=== PATIENT | male | born 1995 | race Caucasian/White ===

== ENCOUNTER 2021-03-27 13:32 | Emergency (ER) | payer BC, SELFPAY ==
[2021-03-27 14:00] VITALS: BP 138/91; PULSE 88; RESP 18; TEMP 36.8; O2SAT 98; BMI 31.7
[2021-03-27 14:23] VITALS: BP 138/91; PULSE 88; RESP 18; TEMP 36.8; O2SAT 98
--- NOTE | 2021-03-27 14:41 | HMH.EDUTC ---
[facility] [place] Disposition Clinical Impression: Exposure to COVID-19 virus Disposition: Home, Self-Care Condition on Discharge: Good Instructions: DI for COVID-19 (Suspected or Confirmed ), How to Care for Someone with COVID-19, Preventing the Spread of Coronavirus Discharge Instructions Additional Instructions: covid swab was sent to lab, call later today for results. self isolate until test results are known to be negative Referrals: Provider,Referral, [Primary Care Provider] - Time of Disposition: 14:43 Medical Decision Making - Jose E Inquiry Pt receiving controlled substance: No Vital Signs: 03/27/21 14:00 03/27/21 14:23 Temperature 98.3 F 98.3 F Temperature Source Oral Pulse Rate 88 Pulse Rate [Right Brachial] 88 Respiratory Rate 18 18 Blood Pressure 138/91 H Blood Pressure [Right Arm] 138/91 H Blood Pressure Mean [Right Arm] 106 Blood Pressure Source [Right Arm] Automatic Cuff Blood Pressure Position [Right Arm] Sitting 02 Sat by Pulse Oximetry 98 Oxygen Delivery Method Room Air Orders (Tests/Meds): ORDERS Category Date Time Status Covid-19 Nasal PCR ([facility]) Routine Lab 03/27/21 14:10 Received [facility] [place] HPI - General Chief complaint: Urgent Treatment Center Stated complaint: covid exposure Time Seen by Provider: 03/27/21 14:41 Mode of Arrival: Ambulatory Source of Information: Patient Limitations: No Limitations Description of Symptoms (Recalled from Triage Doc. by RN): COVID TEST D/T EXPOSURE. DENIES SYMPTOMS HEENT Symptoms (Recalled from RN notes): No Resp Symptoms (Recalled from RN notes): No Skin Symptoms (Recalled from RN notes): No MS Symptoms (Recalled from RN notes): No Functional Status (Recalled from RN notes): WNL - History of Present Illness Provider Complaint: 25 yr old male presents for covid test. no symptoms but exposer - Related Data Allergies Allergy/AdvReac Type Severity Reaction Status Date / Time No Known Allergies Allergy Verified 03/27/21 14:19 - Worker's Comp Is this a Worker's Comp case?: No [facility] History - Hepatitis A Screen Drug use history?: No High risk sexual behaviors?: No History of sexually transmitted infection?: No Currently employed?: No Childcare worker?: No Do you have indoor plumbing?: Yes Do you have electricity?: Yes Attestation statement:: This patient has been screened for Hepatitis A risk factors. I have reviewed the patient's past medical history: Yes ROS Obtained: Yes Systems reviewed as appropriate & no additional complaints - Constitutional Constitutional: Reports system reviewed and no additional complaints, except as docu, Denies fever(s) - Eyes Eyes: Reports system reviewed and no additional complaints, except as docu, Denies blurry vision - ENT Ears, Nose, Mouth, and Throat: Reports system reviewed and no additional complaints, except as docu, Denies sore throat - Cardiovascular Cardiovascular: Reports system reviewed and no additional complaints, except as docu, Denies chest pain - Respiratory Respiratory: Reports system reviewed and no additional complaints, except as docu, Denies chest congestion - Gastrointestinal Gastrointestingal: Reports: system reviewed and no additional complaints, except as docu. Denies: belching - Genitourinary Male Genitourinary: Reports system reviewed and no additional complaints, except as docu - Musculoskeletal Musculoskeletal: Reports system reviewed and no additional complaints, except as docu, Denies joint pain - Integumentary/Breasts Skin/Breast: Reports system reviewed and no additional complaints, except as docu, Denies rash - Neurologic Neurologic: Reports system reviewed and no additional complaints, except as docu, Denies burning sensations - Endocrine Endocrine: Reports system reviewed and no additional complaints, except as docu, Denies fatigue - Hematologic/Lymphatic Henatologic/Lymphatic: Reports system reviewed and no additional complaints, e
== END 2021-03-27 14:52 | disposition home or self-care (01) ==
PROVIDERS: Emergency Provider Nurse Practitioner Family
DX: Z20.822 Contact with and (suspected) exposure to COVID-19 (principal)
CPT/HCPCS: 99202; G0463; U0003

== ENCOUNTER → 2021-08-08 10:35 | Outpatient (CLI) | payer OTHER, SELFPAY | PROVIDERS: Visit Provider Nurse Practitioner | DX: U07.1 COVID-19 (principal) | CPT/HCPCS: C9803; U0003; U0005 ==

== ENCOUNTER 2021-10-25 10:45 | Emergency (ER) | payer OTHER, SELFPAY ==
[2021-10-25 11:41] VITALS: BP 126/78; PULSE 110; RESP 16; TEMP 37.1; O2SAT 99; BMI 30.8
--- NOTE | 2021-10-25 11:56 | HMH.EDUTC ---
[facility] [place] Clinical Impression: Gastroenteritis Disposition: Home, Self-Care Condition on Discharge: Good Instructions: Viral Gastroenteritis, DI for Viral Gastroenteritis -- Adult, Gastroenteritis Diet Additional Instructions: Drink plenty of fluids. Take tylenol or ibuprofen for pain or fever. Take the medications as directed. Follow up with your regular doctor. GO TO THE ER FOR ANY WORSENING SYMPTOMS If you continue to have diarrhea for the next 48 hours, please bring a stool sample back to the hospital Prescriptions: Ondansetron [Zofran 4mg ODT] 4 mg PO Q8HP PRN #20 tab PRN Reason: Nausea Transmission Status: [facility] Referrals: Leobardo River MD [Primary Care Provider] - Forms: Work/School Release Time of Disposition: 12:49 Medical Decision Making - Medical Records Medical records reviewed: No: I reviewed the patient's medical records. - Jose E Inquiry Pt receiving controlled substance: No Vital Signs: 10/25/21 11:41 10/25/21 13:09 Temperature 98.7 F 98.7 F Temperature Source Oral Pulse Rate 110 H Pulse Rate [Left] 110 H Respiratory Rate 16 16 Blood Pressure 126/78 Blood Pressure [Right Arm] 126/78 Blood Pressure Mean [Right Arm] 94 02 Sat by Pulse Oximetry 99 [facility] [place] HPI - General Stated complaint: abd pains, diarrhea, nausea Time Seen by Provider: 10/25/21 11:45 Mode of Arrival: Ambulatory Source of Information: Patient Limitations: No Limitations Description of Symptoms (Recalled from Triage Doc. by RN): pt believes he has food poisoning from eating bad food at work. . pt c/o abd cramping and n/v/d ongoing x2 days. HEENT Symptoms (Recalled from RN notes): No Resp Symptoms (Recalled from RN notes): No Skin Symptoms (Recalled from RN notes): No MS Symptoms (Recalled from RN notes): No Functional Status (Recalled from RN notes): wnl - History of Present Illness Provider Complaint: He has had n/v/d since last night. He thinks that he has food poisoning. He denies any abdominal pain. - Related Data Previous Rx's Medication Instructions Recorded Ondansetron [Zofran 4mg ODT] 4 mg PO Q8HP PRN #20 tab 10/25/21 Allergies Allergy/AdvReac Type Severity Reaction Status Date / Time No Known Allergies Allergy Verified 03/27/21 14:19 - Worker's Comp Is this a Worker's Comp case?: No H History - Hepatitis A Screen Drug use history?: No High risk sexual behaviors?: No History of sexually transmitted infection?: No Currently employed?: No Childcare worker?: No Do you have indoor plumbing?: Yes Do you have electricity?: Yes Attestation statement:: This patient has been screened for Hepatitis A risk factors. I have reviewed the patient's past medical history: Yes ROS Obtained: Yes All systems reviewed & no additional complaints - Constitutional Constitutional: Reports chills, Denies fever(s), Reports poor appetite, Reports malaise - Eyes Eyes: Denies eye discharge - ENT Ears, Nose, Mouth, and Throat: Denies dizziness, Denies otalgia, Denies sore throat - Cardiovascular Cardiovascular: Denies chest pain - Respiratory Respiratory: Denies chest congestion, Denies cough, Denies dyspnea, Denies stridor, Denies wheezing - Gastrointestinal Gastrointestingal: Reports: as per HPI Physical Exam - General General appearance: alert, in no apparent distress - Head Head exam: atraumatic, normocephalic, normal inspection - Eye Eye exam: Present: normal appearance, PERRL, EOMI - ENT ENT exam: Present: normal exam, normal oropharynx, mucous membranes moist, TM's normal bilaterally, normal external ear exam - Neck Neck exam: Present: normal inspection, full ROM, trachea midline. Absent: meningismus, lymphadenopathy - Chest Chest inspection: Present: normal inspection, symmetric chest wall rise. Absent: tenderness - Respiratory Respiratory exam: Present: normal lung sounds bilaterally. Abse
[2021-10-25 13:09] VITALS: BP 126/78; PULSE 110; RESP 16; TEMP 37.1
== END 2021-10-25 13:10 | disposition home or self-care (01) ==
PROVIDERS: Emergency Provider Nurse Practitioner Family; PCP Surgery
DX: K52.9 Noninfective gastroenteritis and colitis, unspecified (principal)
CPT/HCPCS: 99212; G0463

== ENCOUNTER 2021-10-27 10:57 | Emergency (ER) | payer OTHER, SELFPAY ==
[2021-10-27 10:58] VITALS: BP 145/95; PULSE 89; RESP 16; TEMP 37.1; O2SAT 98; BMI 30.8
--- NOTE | 2021-10-27 11:06 | CT_ITS ---
FINAL REPORT TECHNIQUE: After the administration of intravenous contrast, axial images were obtained through the abdomen and pelvis by computed tomography. This study was performed with technique to keep radiation doses as low as reasonably achievable, (ALARA). Individualized dose reduction techniques using automated exposure control or adjustment of the MA and/or KV according to the patient's size were employed. CLINICAL HISTORY: RLQ ABD PAIN FINDINGS: Abdomen: The lung bases are clear. The liver is normal in size and attenuation. The spleen is unremarkable. The adrenals are normal. The pancreas is unremarkable. The kidneys enhance appropriately. The aorta is normal in caliber. There is no free fluid or adenopathy. There are nonspecific fluid-filled bowel loops which could represent an enteritis. Pelvis: The appendix is normal. The urinary bladder is unremarkable. There is no free fluid or adenopathy. IMPRESSION: Nonspecific fluid-filled bowel loops which could represent enteritis. Reviewed, Interpreted and Dictated by Manny Anne III, MD Transcribed by Lynda Devi Authenticated by Manny Anne III, MD on 10/27/2021 12:15:13 PM [facility]
--- NOTE | 2021-10-27 11:08 | PC.NURSE ---
ED MD at
--- NOTE | 2021-10-27 11:14 | HMH.EDGENADL ---
ED Disposition Clinical Impression: Gastroenteritis Disposition: Home, Self-Care Condition on Discharge: Good Instructions: DI for Viral Gastroenteritis -- Adult Additional Instructions: Continue Zofran as needed for nausea and vomiting. Tylenol or ibuprofen as needed for pain. Collect a diarrhea sample using the provided supplies and return it along with the order form to ER registration at [facility] for testing. Obtain the results of this test from your primary care provider the next day. Additional instructions for VOMITING/DIARRHEA: See your physician as soon as possible for further evaluation. Drink plenty of fluids. Return immediately if severe abdominal pain, uncontrollable vomiting, shortness of breath, fever, bloody diarrhea, vomiting of blood or abdominal distention. Referrals: Leobardo River MD [Primary Care Provider] - Forms: Work/School Release - Critical Care Critical Care Time: No Attestation: On , the high probability of a clinically significant, sudden or life threatening deterioration of the following system(s) required my full and direct attention, intervention and personal management. The time I documented below is in addition to time spent performing reported procedures but includes the following listed in this critical care notation. Medical Decision Making - Medical Records Medical records reviewed: Yes: I reviewed the patient's medical records. MR Comment: Reviewed urgent treatment center note from 10/25/2021. - Jose E Inquiry Pt receiving controlled substance: No Vital Signs: 10/27/21 10:58 Temperature 98.7 F Temperature Source Oral Pulse Rate [Radial] 89 Respiratory Rate 16 Blood Pressure [Right Arm] 145/95 H Blood Pressure Mean [Right Arm] 111 Blood Pressure Position [Right Arm] Sitting 02 Sat by Pulse Oximetry 98 Oxygen Delivery Method Room Air - Lab Data Lab Results 10/27/21 11:17: WBC 7.3, RBC 5.33, Hgb 15.5, Hct 46.3, MCV 86.9, MCH 29.0, MCHC 33.4, RDW 12.8, Plt Count 382, MPV 6.9 L, Neut % (Auto) 59.0, Lymph % (Auto) 31.2, Kemper % (Auto) 6.7, Eos % (Auto) 2.4, Baso % (Auto) 0.7, Neut # (Auto) 4.3, Lymph # (Auto) 2.3, Kemper # (Auto) 0.5, Eos # (Auto) 0.2, Baso # (Auto) 0.1 10/27/21 11:17: Sodium 139, Potassium 3.6, Chloride 106, Carbon Dioxide 26, Anion Gap 10.6, BUN 13, Creatinine 0.80, Estimated Creat Clear 233, Estimated GFR 117, Est GFR ( Amer) 141, Glucose 95, Calcium 8.9, Total Bilirubin 0.3, AST 34, ALT 38, Alkaline Phosphatase 84, Total Protein 7.4, Albumin 4.5, Globulin 2.9, Albumin/Globulin Ratio 1.6 10/27/21 11:17: Lipase 131 Result diagrams: 10/27/21 11:17 10/27/21 11:17 Orders (Tests/Meds): ED MEDICATIONS Discontinued Medications Generic Name Dose Route Start Last Admin Trade Name Freq PRN Reason Stop Dose Admin Sodium Chloride 1,000 mls @ 999 mls/hr 10/27/21 11:15 10/27/21 11:27 Sod Chlor 0.9% 1000ml Bag IV 10/27/21 12:15 999 mls/hr .Q1H1M MARCEL Administration Iopamidol 75 ml 10/27/21 11:26 10/27/21 11:27 Iopamidol-370 (76%);100ml Bottle IV 10/27/21 11:27 75 ml ONCE ONE Administration Ondansetron HCl 4 mg 10/27/21 11:06 10/27/21 11:27 Ondansetron 4mg/2ml Vial IV 10/27/21 11:07 4 mg ONCE ONE Administration Sodium Chloride 10 ml 10/27/21 11:26 10/27/21 11:27 Sodium Chloride 0.9% 10ml Syr (Rad Only) IV 10/27/21 11:27 10 ml ONCE ONE Administration ORDERS Category Date Time Status Diarrhea 6-11 Panel, Cdiff PCR Stat Lab 10/27/21 11:07 Ordered Urinalysis and Microscopic Stat Lab 10/27/21 11:05 Ordered - CT Data CT Scan: Abdomen, Pelvis Time Received: 12:[address] Reviewed: Yes: I have viewed the radiologist's interpretation Findings Narrative: Procedure(s): CT abdomen pelvis w con Accession Number(s): [id number] cc: Leobardo River MD; Manny Anne MD; Mihai Calvin MD~ FINAL REPORT TECHNIQUE: After the administration of intravenous contrast, axial images
[2021-10-27 11:28] LABS: Basophils # 0.1 K/mm3 (0-0.2); Basophils % 0.7 % (0.1-2.0); Eosinophils # 0.2 K/mm3 (0.0-0.4); Eosinophils % 2.4 % (0.1-12.0); Hematocrit 46.3 % (42.0-52.0); Hemoglobin 15.5 g/dL (14.1-18.0); Lymphocytes # 2.3 K/mm3 (0.7-4.5); Lymphocytes % 31.2 % (10-50); Mean Corpuscular HGB Conc 33.4 g/dL (31.8-35.4); Mean Corpuscular Volume 86.9 fl (80-94); Mean Platelet Volume 6.9 fl (7.4-10.4); Monocytes # 0.5 K/mm3 (0.1-1.0); Monocytes % 6.7 % (1.7-9.3); Neutrophils # 4.3 K/mm3 (1.8-7.8); Platelet Count 382 K/mm3 (142-424); Red Blood Count 5.33 M/mm3 (4.60-6.20); Red Cell Distribution Width 12.8 % (11.5-17.5); White Blood Count 7.3 K/mm3 (4.8-10.8)
[2021-10-27 11:38] LABS: Lipase 131 U/L (23-300)
[2021-10-27 11:40] LABS: Alanine Aminotransferase 38 U/L (12-78); Albumin Level 4.5 g/dl (3.5-5.0); Albumin/Globulin Ratio 1.6 (1.1-1.8); Alkaline Phosphatase 84 U/L (38-126); Anion Gap 10.6 mEq/L (5-15); Aspartate Amino Transferase 34 U/L (17-59); Bilirubin,Total 0.3 mg/dl (0.2-1.3); Blood Urea Nitrogen 13 mg/dl (9-20); Calcium 8.9 mg/dl (8.4-10.2); Carbon Dioxide 26 mmol/L (22.0-30.0); Chloride 106 mmol/L (98-107); Creatinine Clearance Estimated 233 mL/min (50-200); Estimated Glomerular Filt Rate 117 ml/min (>60); GFR (African American) 141 ML/MIN (>60); Globulin 2.9 g/dL (1.3-3.2); Glucose 95 mg/dl (74-100); Potassium 3.6 mmoL/L (3.5-5.1); Sodium 139 mmol/L (136-145); Total Protein,Serum 7.4 g/dl (6.3-8.2)
--- NOTE | 2021-10-27 12:26 | PC.NURSE ---
ED MD at
[2021-10-27 12:43] VITALS: BP 133/90; PULSE 71; RESP 18; TEMP 36.8; O2SAT 99
--- NOTE | 2021-10-27 12:52 | PC.NURSE ---
patient unable to void at this time
== END 2021-10-27 13:01 | disposition home or self-care (01) ==
PROVIDERS: Emergency Provider Emergency Medicine; PCP Surgery
DX: K52.9 Noninfective gastroenteritis and colitis, unspecified (principal)
CPT/HCPCS: 74177; 80053; 83690; 85025; 96360; 96365; 96375; J2405; Q9967

== ENCOUNTER 2022-01-10 12:55 | Emergency (ER) | payer OTHER, SELFPAY ==
[2022-01-10 13:20] VITALS: BP 150/87; PULSE 74; RESP 21; TEMP 37.2; O2SAT 99; BMI 31.1
[2022-01-10 13:25] LABS: Adenovirus,PCR Not Detected (NotDetected); Bordetella Pertussis Not Detected (NotDetected); Chlamydophila Pneumoniae, PCR Not Detected (NotDetected); Coronavirus 19, PCR Not Detected (NotDetected); Coronavirus 229E Not Detected (NotDetected); Coronavirus NL63 Not Detected (NotDetected); Coronavirus OC43 Not Detected (NotDetected); Coronovirus HKU1,PCR Not Detected (NotDetected); Human Metapneumovirus Not Detected (NotDetected); Influenza A, PCR Not Detected (NotDetected); Influenza AH1, 2009 Not Detected (NotDetected); Influenza AH1, PCR Not Detected (NotDetected); Influenza AH3,PCR Not Detected (NotDetected); Influenza B, PCR Not Detected (NotDetected); Mycoplasma Pneumoniae, PCR Not Detected (NotDetected); Parainfluenza 1, PCR Not Detected (NotDetected); Parainfluenza 2, PCR Not Detected (NotDetected); Parainfluenza 3, PCR Not Detected (NotDetected); Parainfluenza 4, PCR Not Detected (NotDetected); Respiratory Syncytial Virus Not Detected (NotDetected)
--- NOTE | 2022-01-10 13:40 | HMH.EDUTC ---
[facility] [place] Disposition Clinical Impression: Viral syndrome Disposition: Home, Self-Care Condition on Discharge: Good Instructions: Hypertension (Alternative Therapy), Sore Throat, DI for Sinusitis, DI for Cough -- Adult Additional Instructions: *Monitor Temp, Over the counter Motrin or Tylenol as directed/as needed Tylenol every 4 hours and Motrin every 6 hours (as long as your family doctor has told you that you can take it) for fever or pain. and straight to ER if unable to lower temp less than 101.0 after medication given *Warm salt water gargles may help to soothe the throat *Throat Lozenges *Warm fluids like tea with honey may help to soothe the throat *Sleep elevated *Humidifier/Vaporizer *Flonase 2 sprays in each nostril daily but be aware that it may take 2-3 days before you notice improvement Your throat swab was sent for culture. Those results are typically sent to your primary care. Be sure to follow up in 2-3 days with your family doctor/primary care physician if no improvement so they can review those result and treat if necessary. If you don?t have a primary care doctor, I recommend you get one but in the mean time, you will have to return to a walk in clinic Follow up IMMEDIATELY for new or worsening symptoms or no Noticeable improvement over the next 48-72 hours. 911 for difficulty breathing or swallowing You were tested for today for COVID19 your test result should be back in the next 24-48 hours, you may check your results on the [facility] My Health Portal Make sure to take your Vitamins Vit. C Vit D and Zinc if you can take them Prescriptions: Ondansetron [Zofran 4mg ODT] 4 mg PO TIDP PRN #10 tab PRN Reason: Nausea Transmission Status: Received by [facility] Referrals: Leobardo River MD [Primary Care Provider] - As needed Forms: Work/School Release Time of Disposition: 14:01 Medical Decision Making - Jose E Inquiry Pt receiving controlled substance: No Jose E was queried for this patient: No Vital Signs: 01/10/22 13:20 01/10/22 14:05 Temperature 99.0 F 99.0 F Temperature Source Oral Pulse Rate 74 Pulse Rate [Right Brachial] 74 Respiratory Rate 21 21 Blood Pressure 150/87 H Blood Pressure [Right Arm] 150/87 H Blood Pressure Mean [Right Arm] 108 Blood Pressure Source [Right Arm] Automatic Cuff Blood Pressure Position [Right Arm] Sitting 02 Sat by Pulse Oximetry 99 Oxygen Delivery Method Room Air - Lab Data Lab Results 01/10/22 13:31: Group A Strep Rapid Negative Orders (Tests/Meds): ORDERS Category Date Time Status Full Resp Panel w/COVID ([facility]) Routine Lab 01/10/22 13:06 Received Strep Screen Confirmation Stat Micro 01/10/22 13:31 Received Medical Decision Narrative: Discussed with patient and advised if he is having elevated blood pressure with blurry vision I recommend transferring him to the ED for further workup and evaluation and he declined states that he wasnt having it at this time but if it returned he would go to the ED then [facility] [place] HPI - General Stated complaint: weakness, fever, dizzy, stomach ache, runny nose Time Seen by Provider: 01/10/22 13:40 Mode of Arrival: Ambulatory Source of Information: Patient Limitations: No Limitations Description of Symptoms (Recalled from Triage Doc. by RN): PATIENT C/O HEADACHE, SORE THROAT, DRY MOUTH, STOMACH ACHE, SOA AND ELEVATED BLOOD PRESSURE X 3 DAYS. RECENTLY EXPOSED TO RSV AND FLU HEENT Symptoms (Recalled from RN notes): Yes Resp Symptoms (Recalled from RN notes): Yes Skin Symptoms (Recalled from RN notes): No MS Symptoms (Recalled from RN notes): No Functional Status (Recalled from RN notes): WNL - History of Present Illness Provider Complaint: Patient states that he hasnt felt well for several days and noticed that his blood pressure was a little elevated not sure if it is from him not feeling well or not State that he has been having flu like symptoms, body aches, chills, sore throat, Dry
[2022-01-10 13:49] LABS: Strep Scrn Group A (Rapid) Negative (Negative)
[2022-01-10 14:05] VITALS: BP 150/87; PULSE 74; RESP 21; TEMP 37.2; O2SAT 99
[2022-01-10 19:38] LABS: Rhinovirus/Enterovirus Detected (NotDetected)
== END 2022-01-10 14:09 | disposition home or self-care (01) ==
PROVIDERS: Emergency Provider Nurse Practitioner; PCP Surgery
DX: B34.9 Viral infection, unspecified (principal); R07.0 Pain in throat; R05.9 Cough, unspecified; R53.1 Weakness; R50.9 Fever, unspecified; R42 Dizziness and giddiness; R10.9 Unspecified abdominal pain; R09.81 Nasal congestion; R51.9 Headache, unspecified; R68.2 Dry mouth, unspecified; R06.02 Shortness of breath; I10 Essential (primary) hypertension; Z20.822 Contact with and (suspected) exposure to COVID-19; Z20.828 Contact with and (suspected) exposure to other viral communicable diseases
CPT/HCPCS: 87430; 87581; 87632; 87798; 99212; C9803; G0463; U0003; U0005

== ENCOUNTER 2022-04-05 09:44 | Emergency (ER) | payer OTHER, SELFPAY ==
--- NOTE | 2022-04-05 10:09 | EXP.UTC ---
Discharge Plan Disposition Patient Disposition: Home, Self-Care Condition: Good Prescriptions Prescriptions: New benzonatate [benzonatate] 100 mg capsule 100 mg PO TIDP PRN (Reason: Cough) Qty: 30 0RF ondansetron 4 mg Tablet,Disintegrating 4 mg PO Q8H PRN (Reason: Nausea) Qty: 20 0RF No Action ondansetron 4 MG tablet,disintegrating 4 mg PO Q8HP PRN (Reason: Nausea) Qty: 20 0RF ondansetron 4 MG tablet,disintegrating 4 mg PO TIDP PRN (Reason: Nausea) Qty: 10 0RF Referrals Follow up/Referrals: Provider,Referral, MD [Primary Care Provider] - See instructions Activity Restrictions/Add. Instructions Additional Instructions/Restrictions: Drink plenty of fluids. Take tylenol for pain or fever. Return if you begin to have difficulty breathing. Follow up with your regular doctor. GO TO THE ER FOR ANY WORSENING SYMPTOMS Quarantine until you know the results of your covid-19 test. Notify your school or workplace of your results and follow their instructions regarding return to work/school. Clinical Impressions Clinical Impression: Exposure to COVID-19 virus, Viral syndrome Stand Alone Forms Stand Alone Forms: Work/School Release Instructions Patient Instructions: Coronavirus Disease 2019, Preventing the Spread of Coronavirus Discharge Instructions Discharge ED Provider: Chas Fernandez [facility] General Stated complaint: fever, v/d, fatigue Time Seen by Provider: 04/05/22 10:09 History of Present Illness Provider Complaint: He states that since yesterday he has had n/v/d. He has had malaise and a scratchy sore throat also. Related Data Previous Rx's Medication Instructions Recorded ondansetron 4 mg disintegrating 4 mg PO Q8HP PRN Nausea #20 tabs 10/25/21 tablet ondansetron 4 mg disintegrating 4 mg PO TIDP PRN Nausea #10 tabs 01/10/22 tablet benzonatate 100 mg capsule 100 mg PO TIDP PRN Cough #30 caps 04/05/22 ondansetron 4 mg disintegrating 4 mg PO Q8H PRN Nausea #20 tabs 04/05/22 tablet Allergies Allergy/AdvReac Type Severity Reaction Status Date / Time No Known Allergies Allergy Verified 04/05/22 10:29 [facility] Social History Smoking Status: Never smoker alcohol intake: never current occupational status: employed Travel in the last 8 weeks: None ROS Obtained: Yes All systems reviewed & no additional complaints except as documented Constitutional Constitutional: Reports chills and Reports fever(s) Eyes Eyes: Denies eye discharge ENT Ears, Nose, Mouth, and Throat: Reports as per HPI Cardiovascular Cardiovascular: Denies chest pain Respiratory Respiratory: Denies chest congestion and Reports cough Gastrointestinal Gastrointestingal: Reports nausea; Denies abdominal pain, constipation, cramping, diarrhea or vomiting Musculoskeletal Musculoskeletal: Denies arthralgias Integumentary/Breasts Skin/Breast: Denies rash Neurologic Neurologic: Denies paresthesias Physical Exam General General appearance: alert and in no apparent distress Head Head exam: atraumatic, normocephalic and normal inspection Eye Eye exam: Present normal appearance, PERRL and EOMI ENT ENT exam: Present mucous membranes moist and normal external ear exam Expanded ENT Exam TM/Canal exam: Bilateral TM: erythema and bulging Nose exam: Absent sinus tenderness Mouth exam: Present normal external inspection; Absent drooling Teeth exam: Present normal inspection Throat exam: Present tonsillar erythema, tonsillomegaly and tonsillar exudate Neck Neck exam: Present normal inspection, full ROM and trachea midline; Absent tenderness, meningismus or lymphadenopathy Chest Chest inspection: Present normal inspection and symmetric chest wall rise; Absent tenderness Respiratory Respiratory exam: Present normal lung sounds bilaterally; Absent respiratory distress, wheezes or stridor Cardiovascular Cardiovascular exam: Present regular rate and normal rhythm; Absent systolic murmur or
[2022-04-05 10:26] VITALS: BP 129/74; PULSE 83; RESP 19; TEMP 37.1; O2SAT 99; BMI 32.2
[2022-04-05 10:35] VITALS: BP 129/74; PULSE 83; RESP 19; TEMP 37.1
== END 2022-04-05 10:36 | disposition home or self-care (01) ==
PROVIDERS: Emergency Provider Nurse Practitioner Family
DX: B34.9 Viral infection, unspecified (principal)
CPT/HCPCS: 99212; C9803; G0463; U0003; U0005

== ENCOUNTER 2022-05-14 22:23 | Emergency (ER) | payer OTHER, SELFPAY ==
--- NOTE | 2022-05-14 22:31 | HMH.EDGENADL ---
Discharge Plan Disposition Patient Disposition: Home, Self-Care Condition: Good Prescriptions Prescriptions: New omeprazole 20 mg capsule,delayed release(DR/EC) 20 mg PO DAILY 28 Days Qty: 28 0RF dicyclomine 20 mg tablet 20 mg PO TID PRN (Reason: cramps) Qty: 20 0RF No Action benzonatate [benzonatate] 100 mg capsule 100 mg PO TIDP PRN (Reason: Cough) Qty: 30 0RF ondansetron 4 mg Tablet,Disintegrating 4 mg PO Q8H PRN (Reason: Nausea) Qty: 20 0RF ondansetron 4 MG tablet,disintegrating 4 mg PO Q8HP PRN (Reason: Nausea) Qty: 20 0RF ondansetron 4 MG tablet,disintegrating 4 mg PO TIDP PRN (Reason: Nausea) Qty: 10 0RF Referrals Follow up/Referrals: Provider,Referral, MD [Primary Care Provider] - See instructions Activity Restrictions/Add. Instructions Additional Instructions/Restrictions: You have been evaluated for abdominal pain, diagnosed with epigastric pain. This is likely due to gastritis/ colitis or an ulcer. Please start taking omeprazole daily. Clear liquid diet for the next 24 hours. Advance as tolerated. Avoid spicy food, caffeine, alcohol, eating late at night. Follow-up with your primary care doctor. You may need to have a repeat upper GI scope. Return to the emergency department at once for any new or worsening symptoms, pain, fever, vomiting, other concern Clinical Impressions Clinical Impression: Epigastric abdominal pain, Colitis Stand Alone Forms Stand Alone Forms: Work/School Release Instructions Patient Instructions: DI for Acute Abdominal Pain, DI for Epigastric Pain Discharge ED Provider: Valerie Hassan Adult HPI General Chief complaint: Abdominal Pain Stated complaint: vomiting,abd&back Pain Time Seen by Provider: 05/14/22 22:27 Mode of Arrival: Ambulatory Source of Information: Patient Limitations: No Limitations History of Present Illness HPI narrative: 26-year-old male presenting to the emergency department with abdominal pain. Pain is located in the upper abdomen. Started over the last few days, but worse tonight. It is described as sharp, burning. It radiates from the upper abdomen toward his back. Pain was worse tonight after eating. He did not eat anything spicy, only soup. He has been eating more spicy food. Was told he had a peptic ulcer a couple of years ago after an EGD. He is no longer on medication. Drinks alcohol occasionally. Denies tobacco use. No fevers, chills, nausea, vomiting. He had loose stools, diarrhea earlier this week. No blood. No lower abdominal pain. Took immodium prior to arrival Related Data Previous Rx's Medication Instructions Recorded ondansetron 4 mg disintegrating 4 mg PO Q8HP PRN Nausea #20 tabs 10/25/21 tablet ondansetron 4 mg disintegrating 4 mg PO TIDP PRN Nausea #10 tabs 01/10/22 tablet benzonatate 100 mg capsule 100 mg PO TIDP PRN Cough #30 caps 04/05/22 ondansetron 4 mg disintegrating 4 mg PO Q8H PRN Nausea #20 tabs 04/05/22 tablet omeprazole 20 mg capsule,delayed 20 mg PO DAILY 4 weeks #28 caps 05/14/22 release dicyclomine 20 mg tablet 20 mg PO TID PRN cramps #20 tabs 05/15/22 Allergies Allergy/AdvReac Type Severity Reaction Status Date / Time No Known Allergies Allergy Verified 04/05/22 10:29 [facility] Social History (Updated 04/06/22 @ 11:48 by Chas Fernandez APRN) Smoking Status: Current every day smoker alcohol intake: never current occupational status: employed Travel in the last 8 weeks: None ROS Obtained: Yes All systems reviewed & no additional complaints except as documented Constitutional Constitutional: Denies chills, Denies fever(s) and Denies headache(s) ENT Ears, Nose, Mouth, and Throat: Denies dizziness, Denies headache(s) and Denies sore throat Cardiovascular Cardiovascular: Denies chest pain, Denies dyspnea and Denies palpitations Respiratory Respiratory: Denies cough, Denies dyspnea and Denies wheezing Gastrointestinal Gastrointestinga
[2022-05-14 22:32] VITALS: BP 154/103; PULSE 83; RESP 18; TEMP 37.1; O2SAT 98; BMI 30.8
[2022-05-14 23:00] VITALS: BP 142/79; PULSE 69; O2SAT 98
[2022-05-14 23:07] LABS: Basophils # 0.1 K/mm3 (0-0.2); Eosinophils # 0.2 K/mm3 (0.0-0.4); Eosinophils % 2.2 % (0.1-12.0); Hematocrit 44.2 % (42.0-52.0); Hemoglobin 14.1 g/dL (14.1-18.0); Lymphocytes # 3.2 K/mm3 (0.7-4.5); Lymphocytes % 33.7 % (10-50); Mean Corpuscular HGB Conc 31.9 g/dL (31.8-35.4); Mean Corpuscular Hemoglobin 28.6 pg (27.0-31.2); Mean Corpuscular Volume 89.8 fl (80-94); Mean Platelet Volume 7.3 fl (7.4-10.4); Monocytes # 0.5 K/mm3 (0.1-1.0); Monocytes % 4.9 % (1.7-9.3); Neutrophils # 5.6 K/mm3 (1.8-7.8); Neutrophils % 58.2 % (37.0-80.0); Platelet Count 381 K/mm3 (142-424); Red Blood Count 4.92 M/mm3 (4.60-6.20); Red Cell Distribution Width 13.3 % (11.5-17.5); White Blood Count 9.6 K/mm3 (4.8-10.8)
[2022-05-14 23:10] LABS: Chloride 105 mmol/L (98-107); Potassium 3.5 mmoL/L (3.5-5.1); Sodium 141 mmol/L (136-145)
[2022-05-14 23:12] LABS: Alanine Aminotransferase 35 U/L (12-78); Alkaline Phosphatase 98 U/L (38-126); Anion Gap 13.5 mEq/L (5-15); Aspartate Amino Transferase 44 U/L (17-59); Blood Urea Nitrogen 15 mg/dl (9-20); Carbon Dioxide 26 mmol/L (22.0-30.0); Creatinine Clearance Estimated 233 mL/min (50-200); Estimated Glomerular Filt Rate 117 ml/min (>60); GFR (African American) 141 ML/MIN (>60); Lipase 26 U/L (23-300)
[2022-05-14 23:13] LABS: Albumin Level 4.2 g/dl (3.5-5.0); Albumin/Globulin Ratio 1.5 (1.1-1.8); Bilirubin,Total 0.1 mg/dl (0.2-1.3); Calcium 8.2 mg/dl (8.4-10.2); Globulin 2.8 g/dL (1.3-3.2); Glucose 111 mg/dl (74-100)
--- NOTE | 2022-05-14 23:37 | CT_ITS ---
PROCEDURE INFORMATION: Exam: CT Abdomen And Pelvis With Contrast Exam date and time: 05/14/2022 11:52 PM Age: 26 years old Clinical indication: Abdominal pain; Localized; Left upper quadrant (luq); Additional info: Ruq pain TECHNIQUE: Imaging protocol: Computed tomography of the abdomen and pelvis with contrast. Radiation optimization: All CT scans at this facility use at least one of these dose optimization techniques: automated exposure control; mA and/or kV adjustment per patient size (includes targeted exams where dose is matched to clinical indication); or iterative reconstruction. Contrast material: ISOVUE; Contrast volume: 75 ml; Contrast route: IV; COMPARISON: CT ABDOMEN PELVIS W CON 10/27/2021 11:17 AM FINDINGS: Lungs: Mild atelectasis in the lung bases. Heart: Heart size normal. Mediastinal space: The visualized distal esophagus is largely contracted without gross abnormality. Liver: Normal contour. No mass lesions. No intrahepatic biliary ductal dilatation. Gallbladder and bile ducts: Normal. No calcified stones. No ductal dilation. Pancreas: Mild pancreatic atrophy without acute abnormality. No pancreatic ductal dilatation. Spleen: Normal. No splenomegaly. Adrenal glands: Normal. No adrenal mass. Kidneys and ureters: No acute abnormalities. No hydronephrosis or hydroureter. No urinary tract stones are identified. Stomach and bowel: The stomach is unremarkable. Question mildly excessive fluid content in the mid and distal small bowel segments with equivocal slight increase in bowel wall enhancement. This is suspicious for mild gastroenteritis. No heather bowel dilatation or transition point. No evidence of bowel obstruction, perforation, or abscess. Question mild wall thickening in the proximal and distal colonic segments suspicious for mild elements of colitis. Appendix: The appendix is normal in caliber and demonstrates no evidence of appendicitis. Intraperitoneal space: No free fluid or air. Vasculature: No acute process. No abdominal aortic aneurysm. Lymph nodes: Borderline enlarged central mesenteric nodes measuring up to 10 mm short axis are nonspecific, not significantly changed from prior exam. Urinary bladder: Unremarkable as visualized. Reproductive: Mildly enlarged prostate. Bones/joints: No acute osseous abnormalities. Soft tissues: Unremarkable. IMPRESSION: 1. Suspect mild changes of gastroenteritis and minor changes of colitis in the proximal and distal colon. No evidence of bowel obstruction, perforation, or abscess. 2. Borderline mesenteric mini enlargement, nonspecific.
[2022-05-15 00:08] VITALS: BP 145/89; PULSE 73; O2SAT 97
--- NOTE | 2022-05-15 00:22 | PC.NURSE ---
Pt updated that we are waiting for scan results. Pt agreeable. No needs or complaints voiced.
[2022-05-15 00:52] VITALS: BP 132/80; PULSE 75; RESP 17; TEMP 36.6; O2SAT 98
== END 2022-05-15 01:12 | disposition home or self-care (01) ==
PROVIDERS: Emergency Provider Emergency Medicine
DX: R10.13 Epigastric pain (principal); K52.9 Noninfective gastroenteritis and colitis, unspecified
CPT/HCPCS: 74177; 80053; 83690; 85025; 96365; 96375; 99284; J2405; Q9967

== ENCOUNTER 2022-06-01 10:19 | Day surgery (SDC) | payer OTHER, SELFPAY ==
[2022-05-23 12:41] VITALS: BMI 33.7
[2022-06-01 10:37] VITALS: BP 142/85; PULSE 75; RESP 19; TEMP 36.1; O2SAT 97
--- NOTE | 2022-06-01 10:44 | EXP.ANES.CKL ---
[facility] Medical History Allergies Hx of peptic ulcer Hypertension Irritable bowel syndrome (IBS) Seizure disorder Sleep apnea Surgical History Hx of tonsillectomy Hx of wisdom tooth extraction Family History Other Family history of diabetes mellitus type II Family history of hypertension Social History Smoking Status: Current every day smoker tobacco type: cigarettes alcohol intake: current substance use type: denies use current occupational status: employed Travel in the last 8 weeks: None household members: significant other housing: house lives independently: Yes caffeine: Yes do you feel safe at home: Yes victim of physical abuse: No victim of emotional abuse: No victim of sexual abuse: No would you like helpful sources: No [facility] Anesthesia Checklist Patient Identification Patient Identification: Verbal (Name & ) Structural Data Admitted From: Home Planned Operative Procedure/s: egd Consent for Planned Operative Procedure(s) Verified: Yes Airway Assessment C-Spine Mobility Assessed: Yes TMJ Mobility Assessed: Yes Dentition: Good Dentition Neurological Assessment Level of Consciousness: Awake, Alert and Appropriate Anesthesia Plan Anesthesia Risk discussed: Yes Anesthesia Plan: Verified ASA Class: II Anesthesia Type: MAC
[2022-06-01 10:56] VITALS: O2SAT 97
[2022-06-01 11:12] VITALS: BP 116/74; PULSE 74; RESP 18; TEMP 36.1; O2SAT 93
[2022-06-01 11:22] VITALS: BP 126/68; PULSE 65; RESP 18; O2SAT 96
[2022-06-01 11:37] VITALS: BP 117/72; PULSE 65; RESP 18; O2SAT 95
--- NOTE | 2022-06-29 11:34 | HMH.SCOPE ---
Procedure: Date: 06/29/22 Patient Date of :: 1995 Procedure Performed:: EGD & bx Indications:: Epigastric pain, hx of peptic ulcer Performing Provider:: Ivan Hidalgo MD Referring Provider:: Sim Valdivia Sedation:: Propofol Procedure:: The gastroscope was gently passed through the incisoral orifice into the oral cavity and under direct visualization the esophagus was intubated. The endoscope was passed down the esophagus, through the stomach, and into the duodenum. Color, texture, mucosa, and anatomy of the esophagus, stomach, and duodenum were carefully examined with the scope. Findings:: Oropharynx: normal Esophagus: normal EG Junction: intact at 40 cm Cardia: normal Fundus: normal Body: normal, no evidence of ulcer disease, random biopsies obtained Antrum: normal Duodenal bulb: normal Duodenum (second and third portion): normal Impression: Overall normal EGD, random biopsies obtained for evaluation of h.pylori infection Specimens:: Gastric Recommendations:: F/U with PCP, PPI therapy as clinically indicated Complications:: None Estimated blood obtained (mL): 0
== END 2022-06-01 11:40 | disposition home or self-care (01) ==
PROVIDERS: PCP Family Medicine; Visit Provider Internal Medicine Gastroenterology
PROC: 0DJ08ZZ Inspection of Upper Intestinal Tract, Via Natural or Artificial Opening Endoscopic (ICD-10-PCS; CPT 43235; principal; 2022-06-01 11:30)
DX: K29.50 Unspecified chronic gastritis without bleeding (principal); B96.81 Helicobacter pylori [H. pylori] as the cause of diseases classified elsewhere; Z72.0 Tobacco use; Z79.899 Other long term (current) drug therapy
CPT/HCPCS: 43239

== ENCOUNTER 2024-05-19 09:15 | Emergency (ER) | payer SELFPAY ==
[2024-05-19 10:10] VITALS: BMI 27.1
--- NOTE | 2024-05-19 10:10 | XR_ITS ---
PROCEDURE INFORMATION: Exam: XR Right Ribs with PA Chest Exam date and time: 05/19/2024 10:10 AM Age: 28 years old Clinical indication: Chest wall pain; Right; Additional info: Fell hit ribs TECHNIQUE: Imaging protocol: Radiologic exam of the right ribs with PA chest. Views: 3 views COMPARISON: No relevant prior studies available. FINDINGS: Lungs: Unremarkable. No consolidation. Pleural spaces: Unremarkable. No pleural effusion. No pneumothorax. Heart/Mediastinum: Unremarkable. No cardiomegaly. Bones/joints: Unremarkable. IMPRESSION: No acute findings.
[2024-05-19 10:15] VITALS: BP 133/85; PULSE 79; RESP 20; TEMP 37.1; O2SAT 96; BMI 34.6
--- NOTE | 2024-05-19 10:20 | ED_ITS ---
Discharge Plan Disposition Patient Disposition: Home, Self-Care Condition: Good Prescriptions Prescriptions: New ibuprofen [IBU] 800 mg tablet 800 mg PO Q8HP PRN (Reason: Moderate Pain) Qty: 30 0RF cyclobenzaprine 10 mg Tablet 10 mg PO BID PRN (Reason: Muscle Spasm) Qty: 20 0RF No Action irbesartan 150 mg Tablet 150 mg PO DAILY Referrals Follow up/Referrals: Sim Valdivia MD [Primary Care Provider] - See instructions Activity Restrictions/Add. Instructions Additional Instructions/Restrictions: Go home and rest. No heavy lifting & No twisting for the next few days. Take the ibuprofen as directed for pain. The muscle relaxer (cyclobenzaprine--Flexeril) will make you drowsy, so don't drive or operate heavy machinery after taking it. Follow up with your regular doctor. GO TO THE ER FOR ANY WORSENING SYMPTOMS OR CONCERN, ESPECIALLY BOWEL OR BLADDER ISSUES, SADDLE AREA NUMBNESS, FEVER, ETC Clinical Impressions Clinical Impression: Contusion of rib on right side, Rib pain on right side Stand Alone Forms Stand Alone Forms: Work/School Release Instructions Patient Instructions: DI for Rib Contusion, Ibuprofen, Cyclobenzaprine Print Language Print Language: Hungarian Discharge ED Provider[place] Chas Fernandez [facility] [place] General Stated complaint: right side rib pains Time Seen by Provider: 05/19/24 10:20 History of Present Illness Provider Complaint: He states that 4 days ago he fell into his kitchen sink with his side. He hit his right ribs on the edge of the sink. Since then he has had right rib pain. He denies any other complaints. Related Data Home Medications ?Medication ?Instructions ?Recorded ?Confirmed irbesartan 150 mg tablet 150 mg PO DAILY HTN 05/23/22 06/01/22 Previous Rx's ?Medication ?Instructions ?Recorded cyclobenzaprine 10 mg tablet 10 mg PO BID PRN Muscle Spasm #20 05/19/24 tabs ibuprofen 800 mg tablet (IBU) 800 mg PO Q8HP PRN Moderate Pain 05/19/24 #30 tabs Allergies Allergy/AdvReac Type Severity Reaction Status Date / Time No Known Allergies Allergy Verified 06/01/22 10:33 [facility] Disclaimer: The information contained in this section may have been updated after the patient was seen, as this information can be updated by other users. Medical History (Updated 05/19/24 @ 10:58 by Chas Fernandez APRN) Sleep apnea Seizure disorder Hx of peptic ulcer Irritable bowel syndrome (IBS) Allergies Hypertension Surgical History Hx of wisdom tooth extraction Hx of tonsillectomy Family History Other Family history of diabetes mellitus type II Family history of hypertension Social History (Updated 06/01/22 @ 10:45 by Bruce Lopez CRNA) Smoking Status: Current every day smoker tobacco type: cigarettes alcohol intake: current substance use type: denies use current occupational status: employed Travel in the last 8 weeks: None household members: significant other housing: house lives independently: Yes caffeine: Yes do you feel safe at home: Yes victim of physical abuse: No victim of emotional abuse: No victim of sexual abuse: No would you like helpful sources: No ROS Obtained: Yes All systems reviewed & no additional complaints except as documented Constitutional Constitutional: Denies chills and Denies fever(s) Eyes Eyes: Denies eye discharge ENT Ears, Nose, Mouth, and Throat: Denies dizziness, Denies otalgia, Denies neck pain and Denies sore throat Cardiovascular Cardiovascular: Reports as per HPI and Denies chest pain Respiratory Respiratory: Denies shortness of breath, Denies chest congestion, Denies cough, Denies stridor and Denies wheezing Gastrointestinal Gastrointestingal: Denies nausea or vomiting Musculoskeletal Musculoskeletal: Reports as per HPI, Denies back pain and Denies neck pain Integumentary/Breasts Skin/Breast: Denies redness, Denies rash and Denies wounds Neurologic Neurologic: Denies dizziness and Denies paresthesias Allergic/Immunologic Allergic/Immunologic: Denies wheezing Physical Exam General General appearance: alert and in no apparent distress Head Head exam: atraumatic, normocephalic and normal inspection Eye Eye exam: Present normal appearance, PERRL and EOMI ENT ENT exam: Present normal exam, normal oropharynx, mucous membranes moist, TM's normal bilaterally and normal external ear exam Neck Neck exam: Present normal inspection, full ROM and trachea midline; Absent meningismus or lymphadenopathy Chest Chest inspection: Present symmetric chest wall rise and tenderness; Absent rash Respiratory Respiratory exam: Present normal lung sounds bilaterally; Absent respiratory distress Cardiovascular Cardiovascular exam: Present regular rate and normal rhythm; Absent JVD Abdominal Exam Abdominal exam: Present soft and normal bowel sounds; Absent distention, tenderness or guarding Extremities Exam Extremities exam: Present normal inspection, full ROM and normal capillary re fill; Absent calf tenderness Back Exam Back exam: Present normal inspection; Absent tenderness Neurological Exam Neurological exam: Present alert and oriented X3 Psychiatric Psychiatric exam: Present normal affect and normal mood Skin Skin exam: Present warm, dry, intact and normal color Lymphatic Lymphatic Findings: no adenopathy Medical Decision Making Medical Records Medical records reviewed: No I reviewed the patient's medical records. Screening: Per USPSTF and CDC recommendations, given the prevalence of disease in our region, it is our hospital?s policy to screen for HIV and viral Hepatitis for all patients aged 18 and over and those with ongoing risk factors. Jose E Inquiry Pt receiving controlled substance: No Orders (Tests/Meds): ORDERS Category Date Time Status XR ribs RT min 3V w CXR1V Stat Exams 05/19/24 10:10 Ordered Radiology Data #1: Image(s): Chest (ribs) Image Reviewed: Yes I reviewed the patient's radiology image and Yes I have reviewed radiologist's interpretation Preliminary Findings: No Fracture Seen Accession No. : [id number] Patient Name / ID : KEISHA JETER / [id number] Exam Date : 05/19/2024 10:10:58 ( Final ) Study Comment : Sex / Age : M / 28Y Creator : JULIANA CHRISTENSEN Dictator : Debt Collection Specialist : Flight Engineer Helicopter : JULIANA CHRISTENSEN Approver2 : Report Date : 05/19/2024 10:43:28 My Comment : PROCEDURE INFORMATION: Exam: XR Right Ribs with PA Chest Exam date and time: 05/19/2024 10:10 AM Age: 28 years old Clinical indication: Chest wall pain; Right; Additional info: Fell hit ribs TECHNIQUE: Imaging protocol: Radiologic exam of the right ribs with PA chest. Views: 3 views COMPARISON: No relevant prior studies available. FINDINGS: Lungs: Unremarkable. No consolidation. Pleural spaces: Unremarkable. No pleural effusion. No pneumothorax. Heart/Mediastinum: Unremarkable. No cardiomegaly. Bones/joints: Unremarkable. IMPRESSION: No acute findings.
[2024-05-19 11:00] VITALS: BP 133/85; PULSE 79; RESP 20; TEMP 37.1; O2SAT 96
== END 2024-05-19 11:02 | disposition home or self-care (01) ==
PROVIDERS: Emergency Provider Nurse Practitioner Family; PCP Family Medicine
DX: S20.211A Contusion of right front wall of thorax, initial encounter (principal); R07.82 Intercostal pain
CPT/HCPCS: 71101; 99212; G0381